=== PATIENT | male | born 2000 | race Caucasian/White ===

== ENCOUNTER 2022-02-11 18:29 | Emergency (ER) | payer OTHER ==
[~2022-02-11 18:29] MED LIST: HYOSCYAMINE0.125 M2 PO; ZOFRAN4 MG PO
[2022-02-11] MEDS ORDERED: DOXYCYCLINE HY100 MG PO (18:57)
== END 2022-02-11 19:23 | disposition home or self-care (01) ==
LOC: ER1 18:29
DX: Z20.2 Contact with and (suspected) exposure to infections with a predominantly sexual mode of transmission (principal)
CPT/HCPCS: 99283